=== PATIENT | male | born 2005 | race Caucasian/White ===

== ENCOUNTER 2023-09-05 15:42 | Emergency (ER) | payer SELFPAY ==
[~2023-09-05] VITALS: Ht 188 cm; Wt 90.9 kg
[2023-09-05 15:52] VITALS: BP 138/83; TEMP 99.7
[2023-09-05 18:23] LABS: COLLECTION METHOD CLEAN CATCH
[2023-09-05 18:35] LABS: PH 7.5 (5.0-8.5); URINE APPEARANCE CLEAR (CLEAR/HAZY); URINE BLOOD NEGATIVE (NEGATIVE); URINE COLOR YELLOW (YELLOW); URINE GLUCOSE NEGATIVE (NEGATIVE); URINE KETONE NEGATIVE (NEGATIVE); URINE NITRATE NEGATIVE (NEGATIVE); URINE PROTEIN(semi-quant) TRACE (NEGATIVE)
[2023-09-05] MEDS ORDERED: Ketorolac 60 MG/2 ML VIAL IM ONE (19:30)
[2023-09-05] MEDS ORDERED: DOXYCYCLINE 10100 MG PO (20:51)
[2023-09-05] MEDS ORDERED: NAPROSYN500 MG PO (21:06)
[2023-09-05] MEDS ORDERED: cefTRIAXone 1 G,Lidocaine PF 1% 2.1 ML IM ONE (21:15)
[2023-09-05] MEDS ORDERED: Home HYDROcodone/Acetaminophen 5/325 MG #4 TABS/PACK PO ONE (21:15)
[2023-09-05 21:25] VITALS: PULSE 95
== END 2023-09-05 21:25 | disposition home or self-care (01) ==
LOC: COL.ER 15:42 → EDSEX 15:43 → COL.ER 15:43
PROVIDERS: Nurse Practitioner
DX: N50.812 Left testicular pain (principal)
CPT/HCPCS: J0696; J1885